=== PATIENT | male | born 1950 | race Caucasian/White ===

== ENCOUNTER → 2020-09-18 | Outpatient (CLI) | payer OTHER, MEDICARE | LOC: HYPER 10:04 | PROVIDERS: ATTEND Emergency Medicine | DX: S81.811A Laceration without foreign body, right lower leg, initial encounter (principal); S80.11XA Contusion of right lower leg, initial encounter; I87.2 Venous insufficiency (chronic) (peripheral); I73.9 Peripheral vascular disease, unspecified; M15.0 Primary generalized (osteo)arthritis; R60.0 Localized edema; I10 Essential (primary) hypertension; G89.29 Other chronic pain; I48.91 Unspecified atrial fibrillation; Z79.01 Long term (current) use of anticoagulants; Z79.899 Other long term (current) drug therapy; Z89.111 Acquired absence of right hand; X58.XXXA Exposure to other specified factors, initial encounter; Y93.89 Activity, other specified; Y92.89 Other specified places as the place of occurrence of the external cause; Y99.8 Other external cause status ==

== ENCOUNTER → 2020-09-25 | Outpatient (CLI) | payer OTHER, MEDICARE | LOC: HYPER 08:03 | PROVIDERS: ATTEND Emergency Medicine | DX: S81.811D Laceration without foreign body, right lower leg, subsequent encounter (principal); S80.11XD Contusion of right lower leg, subsequent encounter; I87.2 Venous insufficiency (chronic) (peripheral); I73.9 Peripheral vascular disease, unspecified; M15.0 Primary generalized (osteo)arthritis; R60.0 Localized edema; E66.9 Obesity, unspecified; I10 Essential (primary) hypertension; G89.29 Other chronic pain; I48.91 Unspecified atrial fibrillation; Z79.01 Long term (current) use of anticoagulants; Z89.111 Acquired absence of right hand; Z68.29 Body mass index [BMI] 29.0-29.9, adult; X58.XXXD Exposure to other specified factors, subsequent encounter ==

== ENCOUNTER → 2020-10-09 | Outpatient (CLI) | payer OTHER, MEDICARE | LOC: HYPER 07:59 | PROVIDERS: ATTEND Emergency Medicine | DX: S81.811D Laceration without foreign body, right lower leg, subsequent encounter (principal); S80.11XD Contusion of right lower leg, subsequent encounter; I87.2 Venous insufficiency (chronic) (peripheral); R60.0 Localized edema; I73.9 Peripheral vascular disease, unspecified; M15.0 Primary generalized (osteo)arthritis; I10 Essential (primary) hypertension; G89.29 Other chronic pain; I48.91 Unspecified atrial fibrillation; Z79.01 Long term (current) use of anticoagulants; Z79.899 Other long term (current) drug therapy; Z89.111 Acquired absence of right hand; X58.XXXD Exposure to other specified factors, subsequent encounter ==